=== PATIENT | male | born 1995 ===

== ENCOUNTER 2022-03-05 17:16 | Emergency (ER) | payer MEDICAID ==
[2022-03-05 17:55] VITALS: BP 131/80; PULSE 67
[2022-03-05] MEDS ORDERED: Amoxicillin 500 MG Cap ONE (18:00)
== END 2022-03-05 18:05 | disposition home or self-care (01) ==
LOC: LB.ED 17:16
DX: H66.002 Acute suppurative otitis media without spontaneous rupture of ear drum, left ear (principal); Z72.0 Tobacco use
CPT/HCPCS: 99282; A9270-GY

== ENCOUNTER 2022-11-27 16:23 | Emergency (ER) | payer MEDICAID ==
[2022-11-27 16:47] VITALS: BP 134/90; PULSE 99
[2022-11-27 17:30] LABS: INFLUENZA A NAA NEGATIVE (NEGATIVE); INFLUENZA B NAA NEGATIVE (NEGATIVE); RESPIRATORY SYNCYTIAL VIR NAA NEGATIVE (NEGATIVE)
[2022-11-27 17:31] LABS: CORONAVIRUS COVID-19 NAA NEGATIVE (NEGATIVE)
== END 2022-11-27 17:40 | disposition home or self-care (01) ==
LOC: LB.ED 16:23
DX: J02.9 Acute pharyngitis, unspecified (principal); Z20.822 Contact with and (suspected) exposure to COVID-19
CPT/HCPCS: 0241U; 87430; 99282; 99283